=== PATIENT | female | born 1960 | race Caucasian/White ===

== ENCOUNTER → 2020-09-25 | Outpatient (CLI) | payer OTHER | END | disposition home or self-care (01) | LOC: RAD 10:17 | PROVIDERS: ATTEND Surgery | DX: K44.0 Diaphragmatic hernia with obstruction, without gangrene (principal) | CPT/HCPCS: 74230 ==

== ENCOUNTER 2020-10-24 13:34 | Observation (INO) | payer OTHER ==
[2020-10-21 14:18] LABS: ALANINE AMINOTRANSFERASE 17 U/L (12-78); ALBUMIN 3.6 g/dL (3.4-5.0); ANION GAP 6 mmol/L (5-15); CALCIUM 8.7 mg/dL (8.5-10.1); CHLORIDE 110 mmol/L (98-107); CREATININE 0.81 mg/dL (0.55-1.02)
[2020-10-21 14:20] LABS: ALKALINE PHOSPHATASE 70 U/L (45-117); BILIRUBIN,TOTAL 0.5 mg/dL (0.2-1.0); TOTAL PROTEIN 6.9 g/dL (6.4-8.2)
[~2020-10-24] VITALS: Ht 172.7 cm; Wt 98.4 kg
[~2020-10-24 13:34] MED LIST: ALPR0.5T7 PO; BUPIVACAINE/PF 0.5% ONE; EPINEPHRINE 1 MG/ML, 1ML ONE; LISI-170 PO
[2020-10-24] MEDS ORDERED: tylenol PO (13:58)
[2020-10-24] MEDS ORDERED: amoxicillin PO (13:58)
[2020-10-24] MEDS ORDERED: HYDROmorphone 1 MG/ML, 1ML INJ IVPush PRN (14:00)
[2020-10-24] MEDS ORDERED: ACETAMINOPHEN 325 MG TABLET PO PRN (14:00)
[2020-10-24] MEDS ORDERED: ONDANSETRON 2MG/ML, 2ML IVPush PRN ×2 (14:00→20:30)
[2020-10-24] MEDS ORDERED: OXYcodone 5 MG/5 ML ORAL.SOL UDC PO PRN ×2 (14:00→20:30)
[2020-10-24] MEDS ORDERED: FENTANYL PF 250 MCG/5ML ONE (14:00)
[2020-10-24] MEDS ORDERED: METHOCARBAMOL 1,000 MG in DEXTROSE 5% 100 ML IV PRN (14:00)
[2020-10-24] MEDS ORDERED: FENTANYL PF 100 MCG/2ML IV PRN (14:00)
[2020-10-24] MEDS ORDERED: LACTATED RINGERS 1,000 ML IV SCH (14:00)
[2020-10-24] MEDS ORDERED: CHLORHEXIDINE 15 ML UDC MM ONE (14:00)
[2020-10-24] MEDS ORDERED: EPHEDRINE 50 MG/ML, 1ML IVPush PRN (14:00)
[2020-10-24] MEDS ORDERED: PROMETHAZINE 25 MG/ML, 1ML IVPush PRN (14:00)
[2020-10-24] MEDS ORDERED: MIDAZOLAM 1 MG/ML, 2ML ONE (14:00)
[2020-10-24] MEDS ORDERED: GLYCOPYRROLATE 0.2MG/1ML, 5ML ONE ×2 (15:12→16:49)
[2020-10-24] MEDS ORDERED: SUGAMMADEX 200 MG/2 ML IVPush ONE (16:08)
[2020-10-24] MEDS ORDERED: LIDOCAINE-MPF 2% ,5ML ONE (16:08)
[2020-10-24] MEDS ORDERED: KETOROLAC 30 MG/1 ML ONE (16:08)
[2020-10-24] MEDS ORDERED: DEXAMETHASONE 4 MG/ML, 1ML ONE (16:15)
[2020-10-24] MEDS ORDERED: SUCCINYLCHOLINE 20 MG/ML, 10ML ONE (16:15)
[2020-10-24] MEDS ORDERED: PROPOFOL 10 MG/ML, 20ML ONE (16:15)
[2020-10-24] MEDS ORDERED: CEFAZOLIN 1,000 MG ONE (16:15)
[2020-10-24] MEDS ORDERED: ROCURONIUM 10MG/ML,5ML ONE (16:15)
[2020-10-24] MEDS ORDERED: ONDANSETRON 2MG/ML, 2ML ONE (16:15)
[2020-10-24] MEDS ORDERED: OXYcodone 5 MG/5 ML ORAL.SOL UDC ONE (18:22)
[2020-10-24] MEDS ORDERED: FENTANYL PF 100 MCG/2ML ONE (18:22)
[2020-10-24] MEDS ORDERED: LABETALOL 5MG/ML, 20ML ONE (18:47)
[2020-10-24] MEDS: LABETALOL 5MG/ML, 20ML IV PRN ×2 (18:49→19:01)
[2020-10-24] MEDS ORDERED: hydrALAzine 20 MG/ML, 1ML ONE (19:02)
[2020-10-24] MEDS: hydrALAzine 20 MG/ML, 1ML IV PRN ×2 (19:12→19:32)
[2020-10-24] MEDS ORDERED: DIPHENHYDRAMINE 50 MG/ML, 1ML IVPush PRN (20:30)
[2020-10-24] MEDS ORDERED: HYDROmorphone 2 MG/ML, 1ML IV PRN (20:30)
[2020-10-24] MEDS: LACTATED RINGERS 1,000 ML IV SCH (22:39)
[2020-10-24 23:58] VITALS: BP 123/78
[2020-10-25 03:44] VITALS: BP 131/73
[2020-10-25] MEDS ORDERED: MAALOX/HYOSCYAMINE/LIDOCAINE 45 ML BTL PO ONE (06:30)
[2020-10-25 06:40] VITALS: BP 123/68
[2020-10-25] MEDS ORDERED: ACETAMINOPHEN 500 MG TABLET PO SCH (09:00)
[2020-10-25] MEDS ORDERED: LISINOPRIL 20 MG TABLET PO SCH (09:00)
[2020-10-25] MEDS ORDERED: AMOXICILLIN 500 MG CAPSULE PO SCH (09:00)
[2020-10-25] MEDS: LACTATED RINGERS 1,000 ML IV SCH (09:46)
[2020-10-25] MEDS ORDERED: OXYC5CAP2 PO (10:26)
[2020-10-25 12:16] VITALS: BP 105/68
== END 2020-10-25 14:32 | disposition home or self-care (01) ==
LOC: OUT 13:34 → EDSTATUS 15:30 → 4NE 19:51 → OUT 20:39 → 4NE 21:07 → DCLOUNGE 10-25 14:28
PROVIDERS: ADMIT Surgery; ATTEND Surgery
DX: K44.9 Diaphragmatic hernia without obstruction or gangrene (principal); Z20.822 Contact with and (suspected) exposure to COVID-19; I10 Essential (primary) hypertension; Z79.82 Long term (current) use of aspirin; Z79.899 Other long term (current) drug therapy
CPT/HCPCS: 36415; 43333; 80053; 93005; 96361; 96374; C1781; G0378; J0171; J0330; J0360; J0690; J1100; J1170; J1885; J2250; J2405; J2704; J3010; J3490; J7120; S0020; U0003